=== PATIENT | female | born 1970 ===

== ENCOUNTER 2019-05-18 09:43 | Outpatient (CLI) | payer OTHER | END 2019-05-18 10:01 | disposition home or self-care (01) | LOC: SONOGRAMA 09:43 | DX: R59.1 Generalized enlarged lymph nodes (principal) ==

== ENCOUNTER 2019-05-28 09:14 | Outpatient (CLI) | payer OTHER | END 2019-05-28 09:16 | disposition home or self-care (01) | LOC: SONOGRAMA 09:14 → MAMO-SONO 09:15 → SONOGRAMA 09:16 | DX: N92.1 Excessive and frequent menstruation with irregular cycle (principal) ==